=== PATIENT | male | born 1980 ===

== ENCOUNTER → 2025-06-29 07:45 | Outpatient (REF) | payer OTHER, SELFPAY ==
--- OUTSIDE RECORDS SUMMARY | 2025-06-29 07:48 | XMS_ITS | Clinical Summary ---
Author Organization [facility] Address [address] [place] [address] Phone Care Team Providers Care Intermediate Card Tender Name Role Phone Pao Morales Primary Care Provider Encounters Date Type Department Care Team Description 06/21/2025 Transcribe Orders [facility] [address] [place] [address] [address]rd Floor, [address] [place], [place] [id number] Aleja Jamison NSTEMI (non-ST elevated myocardial infarction) (Primary Dx) from Last 3 Months Social History Tobacco Use Types Packs/Day Years Used Date Smoking Tobacco: Never Assessed Education Answer Date Recorded Are you interested in more education? Not on saray e 06/22/2025 Are you concerned about learning? Not on file 06/22/2025 No 06/22/2025 No 06/22/2025 Digital Access Answer Date Recorded No 06/22/2025 No 06/22/2025 Reliable internet access at home? Not on file 06/22/2025 Device with a working camera? Not on file Sex and Gender Information Value Date Recorded Sex Assigned at Not on file Legal Sex Male 4:12 PM EST Gender Identity Not on file Sexual Orientation Not on file Plan of Treatment Upcoming Encounters Date Type Department Care Team (Late st Contact Info) Description 07/27/2025 11:40 AM EST Office Visit [facility] [address], [address] [place] [address] Manuel Corona MD [address], [address] [place], [place] [id number] [email or web address] Health Maintenance Due Date Last Done Comments Adult Td,Tdap Booster 1980 LIPID PANEL 1980 DEPRESSION SCREENING 1992 SMOKING Hx and SMOKELESS TOB ACCO SCREENING 02/28/1993 HEPATITIS C SCREENING 02/28/1998 HIV ONE-TIME SCREENING (18-6 5 YEARS) 02/28/1998 INFLUENZA VACCINE (#1) 2025 COLOGUARD 02/28/2025 COLONOSCOPY 02/28/2025 COLORECTAL CANCER SCREENING 02/28/2025 COVID-19 VACCINE (1 - 2024-2 6 season) 2025 FIT TEST 02/28/2025 FOBT 02/28/2025 SIGMOIDOSCOPY 02/28/2025 VIRTUAL COLONOSCOPY 02/28/2025 HEPATITIS A VACCINES Aged Out No long er eligible based on patient's age to complete this topic HIB VACCINES Aged Out No longer eligi ble based on patient's age to complete this topic MENINGOCOCCAL VACCINES (ACWY) Aged Out No longer eligible based on patient's age to complete this topic MENINGOCOCCAL VACCINES (B) Aged Out N o longer eligible based on patient's age to complete this topic PNEUMOCOCCAL VACCINES (0-49 years) Aged Out No longer eligible based on patient's age to complete this topic Medical Devices Not on file Insurance [facility] Address: [facility] [id number] [place] [address] Care Teams Intermediate Card Tender Relationship Specialty Start Date End Date Pao Morales PA [address] [place] [id number] PCP - General Physician Pre Owned Sales Consultant 06/01/25 Additional Source Comments The information contained in this document represents components of the legal health record. It is not the complete legal health record.[facility]
--- OUTSIDE RECORDS SUMMARY | 2025-06-29 07:48 | XMS_ITS | Clinical Summary ---
Author Organization [facility] Address [address] [place] [address] Phone Care Team Providers Care Live Hanger Name Role Phone Pao Morales Primary Care Provider Encounters Date Type Department Care Team Description 06/13/2025 Telephone [facility] [address] [place] [address] Pao Morales PA from Last 3 Months Social History Tobacco Use Types Packs/Day Years Used Date Smoking Tobacco: Never Assessed Sex and Gender Information Value Date Recorded Sex Assigned at Not on file Legal Sex Male 4:37 AM EST Gender Identity Not on file Sexual Orientation Not on file Plan of Treatment Health Maintenance Due Date Last Done Comments Colorectal Cancer Screening: Colonoscopy 1980 DTaP,Tdap,and Td Vaccines (1 - Tdap) 02/28/1999 Hepatitis B Vaccines (1 of 3 - 19+ 3-dose series) 02/28/1999 HPV Vaccines (1 - 3-dose SCD M series) 02/28/2007 Depression Screening 06/30/2024 COVID-19 Vaccine ( - 2024-2 6 season) 2025 Influenza Vaccine (#1) 2025 Cholesterol Screening (Lipid Panel) 06/13/2025 HIV Screening 06/13/2025 Hepatitis C Screening 06/13/2025 Social Influencers of Health Screening 06/13/2025 RSV Immunization Adult Patie nts (1 - 1-dose 75+ series) 02/28/2055 HIB Vaccines Aged Out No longer eligi ble based on patient's age to complete this topic Hepatitis A Vaccines Aged Out No long er eligible based on patient's age to complete this topic IPV Vaccines Aged Out No longer eligi ble based on patient's age to complete this topic MMR Vaccines Aged Out No longer eligi ble based on patient's age to complete this topic Meningococcal ACWY Vaccine Aged Out N o longer eligible based on patient's age to complete this topic Meningococcal B Vaccine Aged Out No l onger eligible based on patient's age to complete this topic Pneumococcal Vaccine: Pediat rics (0 to 5 Years) and At-Risk Patients (6 to 49 Years) Aged Out No longer eligible b ased on patient's age to complete this topic RSV Immunization Patients Un terri 20 months Aged Out No longer eligible b ased on patient's age to complete this topic Varicella Vaccines Aged Out No longer eligible based on patient's age to complete this topic Insurance [facility] Care Teams Live Hanger Relationship Specialty Start Date End Date Pao Morales PA [address] [place] [id number] PCP - General 06/08/25
--- NOTE | 2025-06-29 07:57 | ECG_ITS ---
Test Reason : QTC CHK Blood Pressure : */* mmHG Vent. Rate : 86 BPM Atrial Rate : 86 BPM P-R Int : 162 ms QRS Dur : 116 ms QT Int : 374 ms P-R-T Axes : 48 23 14 degrees QTcB Int : 447 ms Normal sinus rhythm Normal ECG No previous ECGs available Referred By: Rajni Campo Electronically Signed By: VIKTOR FARMER
[2025-06-29 08:24] LABS: MANUAL DIFF FLAG NO
[2025-06-29 08:53] LABS: Hematocrit 45.6 % (42.0-52.0); Hemoglobin 16.3 g/dl (14.0-18.0); Imm Gran Abs Auto 0.15 X10*3/uL (0.00-0.03); Imm Gran Pct Auto 1.8 % (0.0-0.4); Lymphocytes Absolute Auto 1.8 X10*3/uL (1.2-4.9); Mean Corpuscular HGB Conc 35.7 g/dl (31.0-36.0); Mean Corpuscular Hemoglobin 30.6 pg (27.0-33.0); Mean Corpuscular Volume 85.7 fL (80.0-98.0); NRBC Abs Auto 0.000 X10*3/uL (0.0-0.012); NRBC Pct Auto 0.0 /100WBC (0.0-0.2); Platelet Count 194 X10*3/uL (160-400); Red Blood Count 5.32 X10*6/uL (4.60-5.80); White Blood Count 8.6 X10*3/uL (4.8-10.8)
[2025-06-29 09:35] LABS: Alanine Aminotransferase 164 U/L (0-40); Albumin Level 4.5 g/dL (3.5-5.0); Alkaline Phosphatase 75 U/L (39-117); Anion Gap 13 (12-20); Aspartate Amino Transferase 66 U/L (5-37); Blood Urea Nitrogen 20 mg/dL (9-16); Calcium 9.1 mg/dL (8.4-10.2); Carbon Dioxide 24 mmol/L (22-29); Chloride 107 mmol/L (96-108); Cholesterol 168 mg/dL (<200); Estimated Glomerular Filt Rate > 60; HDL Cholesterol 30 mg/dL (>40); Iron 91 mcg/dL (45-160); Magnesium 2.0 mg/dL (1.6-2.6); NT Pro B Type Natriuretic Pept < 15.8 pg/mL (<300); Percent Iron Saturation 29 % (15-50); Potassium 4.0 mmol/L (3.3-5.1); Sodium 140 mmol/L (135-145); Total Iron Binding Capacity 315 mcg/dL (228-428); Total Protein 7.7 g/dL (6.5-8.0); Triglycerides 422 mg/dL (<150); Troponin-I High Sensitivity 22.9 ng/L (<3.5-35.0); Unsaturated Iron Binding 224 ug/dL
[2025-06-29 09:36] LABS: Free T4 (Free Thyroxine) 0.82 ng/dL (0.71-1.85); Thyroid Stimulating Hormone 2.21 uIU/mL (0.32-4.0)
[2025-06-29 09:55] LABS: Folate 4.5 ng/mL (> or = 4.0)
[2025-06-29 10:33] LABS: Uric Acid 6.5 mg/dL (3.4-7.0)
== END ==
LOC: HO.CARD 07:45
PROVIDERS: Visit Provider Psychiatry & Neurology Psychiatry
DX: F33.2 Major depressive disorder, recurrent severe without psychotic features (principal); R11.0 Nausea; I25.10 Atherosclerotic heart disease of native coronary artery without angina pectoris; Z13.21 Encounter for screening for nutritional disorder; Z13.0 Encounter for screening for diseases of the blood and blood-forming organs and certain disorders involving the immune mechanism; Z13.1 Encounter for screening for diabetes mellitus
CPT/HCPCS: 36415; 80053; 80061; 82306; 82550; 82746; 83036; 83090; 83540; 83615; 83735; 83880; 84425; 84439; 84443; 84484; 84550; 85025; 85652; 86140; 93005

== ENCOUNTER → 2025-06-29 07:57 | Outpatient (BNV) | payer OTHER, SELFPAY | PROVIDERS: Visit Provider Internal Medicine | DX: Z13.6 Encounter for screening for cardiovascular disorders (principal) | CPT/HCPCS: 93010 ==